=== PATIENT | female | born 1985 | race Two or more races ===

== ENCOUNTER 2021-04-05 15:10 | Inpatient (IN) | payer OTHER ==
[~2021-04-05] VITALS: Ht 170.2 cm; Wt 63.5 kg
[2021-04-05] MEDS ORDERED: PANTOPRAZOLE SO40 MG (17:36)
[2021-04-05] MEDS ORDERED: FAMOTIDINE40 MG (17:37)
[2021-04-07] MEDS ORDERED: FAMOTIDINE40 MG PO (18:05)
[2021-04-07] MEDS ORDERED: PANTOPRAZOLE SO40 MG PO (18:06)
[2021-04-07] MEDS ORDERED: PYRIDIUM100 M1 PO (18:07)
[2021-04-07] MEDS ORDERED: SENOKOT-S TABL1 EACH PO (18:08)
== END 2021-04-07 18:24 | disposition home or self-care (01) | DRG 812 ==
LOC: MEDI 15:10
PROVIDERS: ADMIT Internal Medicine Hematology & Oncology; ATTEND Internal Medicine Hematology & Oncology
PROC: 30233N1 Transfusion of Nonautologous Red Blood Cells into Peripheral Vein, Percutaneous Approach (ICD-10-PCS; principal; 2021-04-06)
DX: D62 Acute posthemorrhagic anemia (principal); N92.0 Excessive and frequent menstruation with regular cycle; K21.9 Gastro-esophageal reflux disease without esophagitis; K59.09 Other constipation

== ENCOUNTER 2021-04-15 13:43 | Inpatient (IN) | payer OTHER ==
[~2021-04-15] VITALS: Ht 170.2 cm; Wt 63.0 kg
[~2021-04-15 13:43] MED LIST: FAMOTIDINE40 MG; FAMOTIDINE40 MG PO; PANTOPRAZOLE SO40 MG; PANTOPRAZOLE SO40 MG PO; PYRIDIUM100 M1 PO; SENOKOT-S TABL1 EACH PO
[2021-04-16] MEDS ORDERED: DESLORATADINE5 MG (08:14)
[2021-04-16] MEDS ORDERED: FLONASE16 GM (08:14)
[2021-04-16] MEDS ORDERED: CLARITHROMYCIN500 MG (08:14)
[2021-04-16] MEDS ORDERED: AMOXICILLIN500 MG (08:14)
[2021-04-16] MEDS ORDERED: ABATINEX680 MG (08:15)
[2021-04-22] MEDS ORDERED: VOLTAREN100 GM TOP (12:06)
[2021-04-22] MEDS ORDERED: GABAPENTIN100 MG PO (12:07)
[2021-04-22] MEDS ORDERED: FAMOTIDINE40 MG PO (12:07)
[2021-04-22] MEDS ORDERED: ABATINEX680 MG PO (12:08)
[2021-04-22] MEDS ORDERED: SENOKOT-S TABL1 EACH PO (12:08)
[2021-04-22] MEDS ORDERED: PANTOPRAZOLE SO40 MG PO (12:08)
[2021-04-22] MEDS ORDERED: LIDODERM1 EACH TOP (12:09)
[2021-04-22] MEDS ORDERED: MEDROL4 MG PO (12:13)
== END 2021-04-22 13:42 | disposition home or self-care (01) | DRG 690 ==
LOC: MEDI 13:43
PROVIDERS: ADMIT Internal Medicine Hematology & Oncology; ATTEND Internal Medicine Hematology & Oncology
PROC: 8E0ZXY6 Isolation (ICD-10-PCS; 2021-04-15)
PROC: BW2510Z Computerized Tomography (CT Scan) of Chest, Abdomen and Pelvis using Low Osmolar Contrast, Unenhanced and Enhanced (ICD-10-PCS; principal; 2021-04-16)
PROC: BW2110Z Computerized Tomography (CT Scan) of Abdomen and Pelvis using Low Osmolar Contrast, Unenhanced and Enhanced (ICD-10-PCS; 2021-04-16)
PROC: 3E0F7SF Introduction of Other Gas into Respiratory Tract, Via Natural or Artificial Opening (ICD-10-PCS; 2021-04-18)
PROC: 30233N1 Transfusion of Nonautologous Red Blood Cells into Peripheral Vein, Percutaneous Approach (ICD-10-PCS; 2021-04-19)
PROC: BF2 Imaging, Hepatobiliary System and Pancreas, Computerized Tomography (CT Scan) (ICD-10-PCS; 2021-04-20)
DX: N39.0 Urinary tract infection, site not specified (principal); D64.9 Anemia, unspecified; D59.10 Autoimmune hemolytic anemia, unspecified; K80.20 Calculus of gallbladder without cholecystitis without obstruction; B96.0 Mycoplasma pneumoniae [M. pneumoniae] as the cause of diseases classified elsewhere; M60.88 Other myositis, other site; D50.0 Iron deficiency anemia secondary to blood loss (chronic); K29.40 Chronic atrophic gastritis without bleeding

== ENCOUNTER 2024-02-26 14:18 | Inpatient (IN) | payer OTHER ==
[~2024-02-26] VITALS: Ht 78.7 cm; Wt 61.7 kg
[~2024-02-26 14:18] MED LIST changes: +ABATINEX680 MG; +ABATINEX680 MG PO; +AMOXICILLIN500 MG; +CLARITHROMYCIN500 MG; +DESLORATADINE5 MG; +FLONASE16 GM; +GABAPENTIN100 MG PO; +LIDODERM1 EACH TOP; +MEDROL4 MG PO; +VOLTAREN100 GM TOP
[2024-02-26 15:22] LABS: URINE APPEARANCE Clear; URINE BILIRRUBIN Negative (NEGATIVE); URINE BLOOD Moderate; URINE COLOR Yellow; URINE GLUCOSE Negative (NEGATIVE); URINE LEUKOCYTE Trace; URINE NITRATE Negative; URINE PROTEIN Negative (NEGATIVE)
[2024-02-26 15:26] LABS: URINE BACTERIA 706.8 uL (0.0-1933); URINE EPITHELIAL CELLS 16.8 uL (0.0-38.8); URINE RBC 100.7 uL (0.0-20.8)
[2024-02-26 15:29] LABS: MEAN CORPUSCULAR HGB CONC 29.4 g/dl (32.0-36.0); PLATELET COUNT 456 K/uL (150-450); RED BLOOD COUNT 4.05 M/uL (4.00-6.00)
[2024-02-26 15:41] LABS: INR 1.06; PARTIAL THROMBOPLASTIN TIME 26.7 SECONDS (22.0-34.0); PROTHROMBIN TIME 11.1 SECONDS (9.0-11.5)
[2024-02-26 15:52] LABS: ALBUMIN 3.6 gm/dL (3.4-5.0); BILIRUBIN TOTAL 0.21 mg/dL (0.3-1.2); CALCIUM 8.4 mg/dL (8.5-10.1); CREATININE SERUM 0.5 mg/dL (0.55-1.02); GFR 139.6; GLOBULINA 3.8 G/DL (2.4-3.5); POTASSIUM 4.03 mEq/L (3.5-5.1); TOTAL PROTEIN 7.4 gm/dL (6.4-8.2); TSH 2.65 uIU/mL (0.358-3.74)
[2024-02-26] MEDS ORDERED: 0.9 % SODIUM CHLORIDE 1,000 ML IV SCH (16:15)
[2024-02-26 16:19] LABS: MEAN CORPUSCULAR HEMOGLOBIN 16.7 pg (27.00-32.0)
[2024-02-26 16:20] LABS: HEMATOCRIT 23.1 % (36.0-45.00); MEAN CELL VOLUME 57.1 fL (80.00-100.00); RED CELL DISTRIBUTION WIDTH 20.2 % (11.5-14.5)
[2024-02-26 16:21] LABS: HEMOGLOBIN 6.8 g/dL (12.0-15.00)
[2024-02-26] MEDS ORDERED: MULTIVIT INFUSN,ADULT 4,VIT K 10 ML VIAL IV SCH (16:22)
[2024-02-26] MEDS ORDERED: FAMOTIDINE/PF 20 MG/2 ML VIAL IV PUSH STA (16:23)
[2024-02-26] MEDS ORDERED: FUROsemide 20 MG/2 ML VIAL IV SCH (16:30)
[2024-02-26] MEDS ORDERED: ACETAMINOPHEN 325 MG TABLET PO PRN (16:30)
[2024-02-26] MEDS ORDERED: ONDANSETRON HCL 2 MG/ML VIAL IV PRN (16:30)
[2024-02-27] MEDS ORDERED: FAMOTIDINE/PF 20 MG/2 ML VIAL IV PUSH SCH (09:00)
[2024-02-27] MEDS ORDERED: METHYLPREDNISOLONE SOD SUCC 40 MG VIAL IV SCH (21:00)
[2024-02-29 09:37] LABS: HEMATOCRIT 34.6 % (36.0-45.00); HEMOGLOBIN 10.8 g/dL (12.0-15.00); MEAN CELL VOLUME 65.2 fL (80.00-100.00); MEAN CORPUSCULAR HEMOGLOBIN 20.2 pg (27.00-32.0); MEAN CORPUSCULAR HGB CONC 31.1 g/dl (32.0-36.0); PLATELET COUNT 388 K/uL (150-450); RED BLOOD COUNT 5.32 M/uL (4.00-6.00); RED CELL DISTRIBUTION WIDTH 29.8 % (11.5-14.5)
[2024-03-01] MEDS ORDERED: METHYLPREDNISOLONE SOD SUCC 40 MG VIAL IV SCH (05:00)
[2024-03-01 07:19] LABS: HEMATOCRIT 32.2 % (36.0-45.00); HEMOGLOBIN 10.1 g/dL (12.0-15.00); MEAN CORPUSCULAR HEMOGLOBIN 20.6 pg (27.00-32.0); MEAN CORPUSCULAR HGB CONC 31.4 g/dl (32.0-36.0); PLATELET COUNT 382 K/uL (150-450); RED BLOOD COUNT 4.91 M/uL (4.00-6.00)
[2024-03-01 08:14] LABS: MEAN CELL VOLUME 65.6 fL (80.00-100.00); RED CELL DISTRIBUTION WIDTH 30.1 % (11.5-14.5)
[2024-03-01 12:59] LABS: ob NEGATIVE (NEGATIVE)
[2024-03-01] MEDS ORDERED: MILLIPRED5 MG PO (17:16)
== END 2024-03-01 17:58 | disposition home or self-care (01) | DRG 812 ==
LOC: MEDJ 14:18
PROVIDERS: ADMIT Internal Medicine Hematology & Oncology; ATTEND Internal Medicine Hematology & Oncology
PROC: 30233N1 Transfusion of Nonautologous Red Blood Cells into Peripheral Vein, Percutaneous Approach (ICD-10-PCS; principal; 2024-02-28)
DX: D64.89 Other specified anemias (principal); D59.10 Autoimmune hemolytic anemia, unspecified
CPT/HCPCS: 240